=== PATIENT | male | born 1960 | race Caucasian/White ===

== ENCOUNTER 2020-07-30 14:52 | Inpatient (IN) | payer MEDICARE, OTHER ==
[~2020-07-30] VITALS: Ht 182.9 cm; Wt 111.8 kg
[2020-07-30] MEDS ORDERED: VIT1CAPS PO (15:27)
[2020-07-30] MEDS ORDERED: BENA20TA9 PO (15:27)
[2020-07-30] MEDS ORDERED: GABA-532 PO (15:27)
[2020-07-30] MEDS ORDERED: INSULIN GLARGINE SUBCUT (15:27)
[2020-07-30] MEDS ORDERED: MULT-594 PO (15:27)
[2020-07-30] MEDS ORDERED: ATOR20TA PO (15:27)
[2020-07-30] MEDS ORDERED: INSU100V39 SQ (15:27)
[2020-07-30] MEDS ORDERED: ACET-2154 PO (15:27)
[2020-07-30] MEDS ORDERED: GLUC1KIT IM (15:27)
[2020-07-30] MEDS ORDERED: IV NORMAL SALINE 1000 ML BAG IV ONE (15:30)
[2020-07-30 15:39] LABS: *BILIRUBIN,URIN NEGATIVE (NEGATIVE); *BLOOD, URINE NEGATIVE (NEGATIVE); *CLARITY,URINE CLEAR (CLEAR); *COLOR,URINE LIGHT YELLOW (YELLOW); *KETONES,URINE NEGATIVE (NEGATIVE); *UROBILINOGEN,URINE 0.2 E.U./dl (NORMAL); LEUKOCYTE ESTERASE ,URINE NEGATIVE (NEGATIVE); NITRITE, URINE NEGATIVE (NEGATIVE)
[2020-07-30 15:41] LABS: UGLUCOSE 2+ (NEGATIVE)
[2020-07-30 16:14] LABS: BASOPHILS # (AUTO) 0.1 K/uL (0.0-8.0); BASOPHILS % (AUTO) 0.6 % (0.0-2.0); EOSINOPHILS # (AUTO) 0.1 K/uL (0.0-0.7); EOSINOPHILS % (AUTO) 1.4 % (0.0-7.0); HEMATOCRIT 47.9 % (36.7-47.1); HEMOGLOBIN 16.5 g/dL (12.5-16.3); LYMPHOCYTES # (AUTO) 1.1 K/uL (20.0-40.0); LYMPHOCYTES % (AUTO) 11.6 % (20.5-51.5); MEAN CORPUSCULAR HGB CONC 35 g/dL (32.5-36.3); MEAN CORPUSCULAR VOLUME 92.7 fL (73.0-96.2); MONOCYTES # (AUTO) 0.9 K/uL (2.0-10.0); MONOCYTES % (AUTO) 9.1 % (0.0-11.0); NEUTROPHILS # (AUTO) 7.4 K/uL (1.8-8.9); NEUTROPHILS % (AUTO) 77.3 % (38.5-71.5); PLATELET COUNT (AUTO) 215 K/uL (152-348); RED BLOOD CELL COUNT(AUTO) 5.16 MIL/uL (4.06-5.63); WHITE BLOOD COUNT (AUTO) 9.6 K/uL (3.6-10.2)
[2020-07-30 16:20] LABS: ABG BASE EXCESS 1.4 mmol/L; ABG HCO3 25.2 mmol/L; ABG PCO2 37.5 mmHg (35.0-45.0); ABG PH 7.446 (7.350-7.450); ABG PO2 72.4 mmHg (75.0-100.0); ABG SITE RIGHT RADIAL; ABG TOTAL HEMOGLOBIN 16.2 G/dL (13.5-18.0); MetHb 0.2 % (0.0-1.5); VENT MODE ROOM AIR
[2020-07-30 16:21] LABS: BILIRUBIN,DIRECT 0.2 mg/dL (0.0-0.2); BILIRUBIN,TOTAL 0.4 mg/dL (0.2-1.0); POTASSIUM 4.3 mmol/L (3.5-5.1); TOTAL PROTEIN, SERUM 8.1 g/dL (6.4-8.2)
[2020-07-30] MEDS ORDERED: IV NORMAL SALINE 500 ML BAG IV ONE (16:45)
[2020-07-30] MEDS ORDERED: INSULIN REGULAR, HUMAN 300 UNIT/3 ML VIAL SQ ONE (16:45)
[2020-07-30 18:23] VITALS: BP 145/78
[2020-07-30] MEDS ORDERED: ZOLPIDEM 5 MG TABLET PO PRN (19:00)
[2020-07-30] MEDS ORDERED: MORPHINE SULFATE 2 MG/1 ML DISP.SYRIN IV PRN (19:00)
[2020-07-30] MEDS ORDERED: ACETAMINOPHEN 325 MG TABLET PO PRN ×2 (19:00)
[2020-07-30] MEDS ORDERED: DEXTROSE 50% 50 ML DISP.SYRIN IV PRN (19:00)
[2020-07-30] MEDS ORDERED: ONDANSETRON 4 MG/2 ML VIAL IV PRN (19:00)
[2020-07-30] MEDS: ATORVASTATIN 20 MG TABLET PO SCH (20:21)
[2020-07-30] MEDS: GABAPENTIN 300 MG CAPSULE PO SCH (20:21)
[2020-07-30] MEDS: ENOXAPARIN SODIUM 40 MG/0.4 ML DISP.SYRIN SQ SCH (20:22)
[2020-07-30 20:30] VITALS: BP 118/62
[2020-07-30] MEDS: BLOOD SUGAR DIAGNOSTIC 1 EACH STRIP VI SCH (20:33)
[2020-07-30] MEDS: INSULIN REGULAR, HUMAN 300 UNITS/3 ML VIAL SQ PRN (20:37)
[2020-07-30] MEDS: INSULIN GLARGINE,HUM 300 UNITS/3 ML CARTRIDGE SQ SCH (20:38)
[2020-07-30] MEDS ORDERED: DOCUSATE SODIUM 100 MG CAPSULE PO PRN (21:00)
[2020-07-31 00:09] VITALS: BP 102/58
[2020-07-31 04:24] VITALS: BP 103/93
[2020-07-31] MEDS: PANTOPRAZOLE SODIUM 40 MG TABLET.DR PO SCH (06:29)
[2020-07-31] MEDS: BLOOD SUGAR DIAGNOSTIC 1 EACH STRIP VI SCH ×4 (06:30→21:17)
[2020-07-31] MEDS: INSULIN REGULAR, HUMAN 300 UNIT/3 ML VIAL SQ PRN ×3 (07:15→15:48)
[2020-07-31 07:27] LABS: BASOPHILS # (AUTO) 0.1 K/uL (0.0-8.0); EOSINOPHILS # (AUTO) 0.2 K/uL (0.0-0.7); EOSINOPHILS % (AUTO) 2.5 % (0.0-7.0); HEMATOCRIT 43.1 % (36.7-47.1); HEMOGLOBIN 14.9 g/dL (12.5-16.3); LYMPHOCYTES # (AUTO) 1.6 K/uL (20.0-40.0); LYMPHOCYTES % (AUTO) 20.7 % (20.5-51.5); MEAN CORPUSCULAR HEMOGLOBIN 31.7 uug (23.8-33.4); MEAN CORPUSCULAR HGB CONC 35 g/dL (32.5-36.3); MEAN CORPUSCULAR VOLUME 91.9 fL (73.0-96.2); MONOCYTES # (AUTO) 0.8 K/uL (2.0-10.0); MONOCYTES % (AUTO) 10.6 % (0.0-11.0); NEUTROPHILS # (AUTO) 4.9 K/uL (1.8-8.9); NEUTROPHILS % (AUTO) 65.2 % (38.5-71.5); PLATELET COUNT (AUTO) 210 K/uL (152-348); RED BLOOD CELL COUNT(AUTO) 4.69 MIL/uL (4.06-5.63); WHITE BLOOD COUNT (AUTO) 7.5 K/uL (3.6-10.2)
[2020-07-31 07:31] LABS: THYROID STIMULATING HORMONE 1.423 mIU/mL (0.358-3.740)
[2020-07-31 07:42] LABS: BILIRUBIN,TOTAL 0.3 mg/dL (0.2-1.0); CREATININE 0.7 mg/dL (0.6-1.3); MAGNESIUM 1.9 mg/dL (1.8-2.4); PHOSPHOROUS 2.9 mg/dL (2.5-4.9); POTASSIUM 3.5 mmol/L (3.5-5.1); TOTAL PROTEIN, SERUM 6.6 g/dL (6.4-8.2)
[2020-07-31] MEDS: MULTIVITAMINS,THERAPEUTIC TABLET PO SCH (08:00)
[2020-07-31] MEDS: BENAZEPRIL HCL 5 MG TABLET PO SCH (08:00)
[2020-07-31] MEDS: FUROSEMIDE 20 MG/2 ML VIAL IV SCH (08:13)
[2020-07-31] MEDS ORDERED: ALPHA LIPOIC ACID PO SCH (09:00)
[2020-07-31] MEDS ORDERED: FOLIC ACID PO SCH (09:00)
[2020-07-31] MEDS ORDERED: CYANOCOBALAMIN PO SCH (09:00)
[2020-07-31] MEDS ORDERED: THIAMINE PO SCH (09:00)
[2020-07-31] MEDS ORDERED: VITAMIN E PO SCH (09:00)
[2020-07-31] MEDS ORDERED: PYRIDOXINE PO SCH (09:00)
[2020-07-31] MEDS ORDERED: COENZYME Q10 PO SCH (09:00)
[2020-07-31] MEDS: REPAGLINIDE 1 MG TABLET PO SCH ×2 (11:27→16:12)
[2020-07-31] MEDS ORDERED: INSULIN REGULAR, HUMAN 300 UNIT/3 ML VIAL SQ ONE (11:30)
[2020-07-31 11:39] VITALS: BP 120/62
[2020-07-31 15:31] VITALS: BP 102/55
[2020-07-31 20:24] VITALS: BP 116/59
[2020-07-31] MEDS: ATORVASTATIN 20 MG TABLET PO SCH (20:53)
[2020-07-31] MEDS: ENOXAPARIN SODIUM 40 MG/0.4 ML DISP.SYRIN SQ SCH (20:54)
[2020-07-31] MEDS: GABAPENTIN 300 MG CAPSULE PO SCH (20:54)
[2020-07-31] MEDS: INSULIN REGULAR, HUMAN 300 UNITS/3 ML VIAL SQ PRN (21:19)
[2020-07-31] MEDS: INSULIN GLARGINE,HUM 300 UNITS/3 ML CARTRIDGE SQ SCH (21:20)
[2020-08-01 04:18] VITALS: BP 106/63
[2020-08-01] MEDS: PANTOPRAZOLE SODIUM 40 MG TABLET.DR PO SCH (06:38)
[2020-08-01] MEDS: BLOOD SUGAR DIAGNOSTIC 1 EACH STRIP VI SCH ×4 (06:38→20:47)
[2020-08-01] MEDS: INSULIN REGULAR, HUMAN 300 UNIT/3 ML VIAL SQ PRN ×3 (07:47→16:43)
[2020-08-01] MEDS: REPAGLINIDE 1 MG TABLET PO SCH ×3 (07:48→16:33)
[2020-08-01] MEDS: FUROSEMIDE 20 MG/2 ML VIAL IV SCH (08:44)
[2020-08-01] MEDS: MULTIVITAMINS,THERAPEUTIC TABLET PO SCH (08:44)
[2020-08-01] MEDS: BENAZEPRIL HCL 5 MG TABLET PO SCH (08:47)
[2020-08-01 12:00] VITALS: BP_SYST 119; BP_DIAS 62; BP_DIAS 65
[2020-08-01 16:11] VITALS: BP 124/76
[2020-08-01 20:24] VITALS: BP 136/74
[2020-08-01] MEDS: ATORVASTATIN 20 MG TABLET PO SCH (20:45)
[2020-08-01] MEDS: GABAPENTIN 300 MG CAPSULE PO SCH (20:45)
[2020-08-01] MEDS: ENOXAPARIN SODIUM 40 MG/0.4 ML DISP.SYRIN SQ SCH (20:47)
[2020-08-01] MEDS: INSULIN REGULAR, HUMAN 300 UNITS/3 ML VIAL SQ PRN (20:48)
[2020-08-01] MEDS ORDERED: INSULIN GLARGINE,HUM 300 UNITS/3 ML CARTRIDGE SQ SCH (21:00)
[2020-08-02 05:32] VITALS: BP 166/41
[2020-08-02] MEDS: PANTOPRAZOLE SODIUM 40 MG TABLET.DR PO SCH (06:02)
[2020-08-02] MEDS: BLOOD SUGAR DIAGNOSTIC 1 EACH STRIP VI SCH ×4 (06:47→20:59)
[2020-08-02 07:44] LABS: BASOPHILS # (AUTO) 0.1 K/uL (0.0-8.0); BASOPHILS % (AUTO) 0.8 % (0.0-2.0); EOSINOPHILS # (AUTO) 0.3 K/uL (0.0-0.7); EOSINOPHILS % (AUTO) 3.1 % (0.0-7.0); HEMATOCRIT 45.9 % (36.7-47.1); HEMOGLOBIN 16.1 g/dL (12.5-16.3); LYMPHOCYTES # (AUTO) 2.2 K/uL (20.0-40.0); LYMPHOCYTES % (AUTO) 25.8 % (20.5-51.5); MEAN CORPUSCULAR HEMOGLOBIN 32.2 uug (23.8-33.4); MEAN CORPUSCULAR HGB CONC 35 g/dL (32.5-36.3); MEAN CORPUSCULAR VOLUME 92.1 fL (73.0-96.2); MONOCYTES # (AUTO) 0.8 K/uL (2.0-10.0); NEUTROPHILS # (AUTO) 5.1 K/uL (1.8-8.9); NEUTROPHILS % (AUTO) 60.3 % (38.5-71.5); PLATELET COUNT (AUTO) 230 K/uL (152-348); RED BLOOD CELL COUNT(AUTO) 4.99 MIL/uL (4.06-5.63); WHITE BLOOD COUNT (AUTO) 8.5 K/uL (3.6-10.2)
[2020-08-02] MEDS: INSULIN REGULAR, HUMAN 300 UNIT/3 ML VIAL SQ PRN ×3 (07:44→16:43)
[2020-08-02] MEDS: REPAGLINIDE 1 MG TABLET PO SCH ×3 (07:46→17:13)
[2020-08-02 07:47] LABS: POTASSIUM 3.7 mmol/L (3.5-5.1)
[2020-08-02 08:00] VITALS: BP 117/68
[2020-08-02] MEDS: MULTIVITAMINS,THERAPEUTIC TABLET PO SCH (08:22)
[2020-08-02] MEDS: FUROSEMIDE 20 MG/2 ML VIAL IV SCH (08:32)
[2020-08-02 09:22] VITALS: BP 108/60
[2020-08-02] MEDS ORDERED: POTASSIUM CHLORIDE 20 MEQ TAB.PRT.SR PO ONE (11:00)
[2020-08-02] MEDS ORDERED: PANT40TA2 PO (12:26)
[2020-08-02] MEDS ORDERED: REPA1TAB PO (12:26)
[2020-08-02] MEDS ORDERED: Insulin Glargine,Hum SQ (12:26)
[2020-08-02] MEDS ORDERED: FURO-152 PO (12:26)
[2020-08-02] MEDS ORDERED: ATOR10TA PO (12:26)
[2020-08-02] MEDS ORDERED: ZOLP5TAB8 PO (12:26)
[2020-08-02 13:46] VITALS: BP 112/59
[2020-08-02] MEDS: BENAZEPRIL HCL 5 MG TABLET PO SCH (14:27)
[2020-08-02 16:01] VITALS: BP 105/60
[2020-08-02 20:05] VITALS: BP 120/62
[2020-08-02] MEDS: SULFAMETH/TRIMETH 800/160 MG TABLET PO SCH (20:58)
[2020-08-02] MEDS: ATORVASTATIN 20 MG TABLET PO SCH (20:58)
[2020-08-02] MEDS: GABAPENTIN 300 MG CAPSULE PO SCH (20:58)
[2020-08-02] MEDS ORDERED: INSULIN GLARGINE,HUM 300 UNITS/3 ML CARTRIDGE SQ SCH (21:00)
[2020-08-02] MEDS: INSULIN REGULAR, HUMAN 300 UNITS/3 ML VIAL SQ PRN (21:02)
[2020-08-02] MEDS: ENOXAPARIN SODIUM 40 MG/0.4 ML DISP.SYRIN SQ SCH (21:05)
[2020-08-03 04:59] VITALS: BP 112/71
[2020-08-03] MEDS: PANTOPRAZOLE SODIUM 40 MG TABLET.DR PO SCH (06:35)
[2020-08-03] MEDS: BLOOD SUGAR DIAGNOSTIC 1 EACH STRIP VI SCH ×3 (06:47→16:05)
[2020-08-03] MEDS: INSULIN REGULAR, HUMAN 300 UNIT/3 ML VIAL SQ PRN ×3 (07:45→17:07)
[2020-08-03] MEDS: SULFAMETH/TRIMETH 800/160 MG TABLET PO SCH (08:03)
[2020-08-03] MEDS: MULTIVITAMINS,THERAPEUTIC TABLET PO SCH (08:03)
[2020-08-03] MEDS: BENAZEPRIL HCL 5 MG TABLET PO SCH (08:03)
[2020-08-03] MEDS: REPAGLINIDE 1 MG TABLET PO SCH ×3 (08:03→16:39)
[2020-08-03] MEDS: FUROSEMIDE 20 MG/2 ML VIAL IV SCH (08:31)
[2020-08-03] MEDS ORDERED: ASPIRIN EC 81 MG TABLET.DR PO SCH (09:00)
[2020-08-03 11:20] VITALS: BP 113/64
[2020-08-03] MEDS ORDERED: INSU100V7 SQ (11:51)
[2020-08-03] MEDS ORDERED: Sulfameth/Trimeth 800/160 Mg PO (11:53)
[2020-08-03] MEDS ORDERED: ASCO500P18 PO (11:58)
[2020-08-03] MEDS ORDERED: ZINC1CAP2 PO (11:58)
[2020-08-03 16:06] VITALS: BP 97/56
== END 2020-08-03 17:33 | DRG 264 ==
LOC: ER 14:52 → TELE3 17:39 → MEDSURG3 07-31 17:37
PROVIDERS: ADMIT Internal Medicine; ATTEND Internal Medicine
PROC: 0JBR0ZZ Excision of Left Foot Subcutaneous Tissue and Fascia, Open Approach (ICD-10-PCS; principal; 2020-07-31)
PROC: 0JBQ0ZZ Excision of Right Foot Subcutaneous Tissue and Fascia, Open Approach (ICD-10-PCS; 2020-07-31)
DX: I11.0 Hypertensive heart disease with heart failure (principal); I50.31 Acute diastolic (congestive) heart failure; E43 Unspecified severe protein-calorie malnutrition; J96.00 Acute respiratory failure, unspecified whether with hypoxia or hypercapnia; D68.69 Other thrombophilia; E11.65 Type 2 diabetes mellitus with hyperglycemia; Z79.4 Long term (current) use of insulin; E11.40 Type 2 diabetes mellitus with diabetic neuropathy, unspecified; E11.51 Type 2 diabetes mellitus with diabetic peripheral angiopathy without gangrene; D64.9 Anemia, unspecified; E11.42 Type 2 diabetes mellitus with diabetic polyneuropathy; E78.5 Hyperlipidemia, unspecified; F17.210 Nicotine dependence, cigarettes, uncomplicated; Z91.19 Patient's noncompliance with other medical treatment and regimen; L84 Corns and callosities; F20.9 Schizophrenia, unspecified; E66.9 Obesity, unspecified; Z68.33 Body mass index [BMI] 33.0-33.9, adult; J44.9 Chronic obstructive pulmonary disease, unspecified; L03.031 Cellulitis of right toe; E11.621 Type 2 diabetes mellitus with foot ulcer; L97.519 Non-pressure chronic ulcer of other part of right foot with unspecified severity; L97.529 Non-pressure chronic ulcer of other part of left foot with unspecified severity; Z89.412 Acquired absence of left great toe; Z89.411 Acquired absence of right great toe; G47.33 Obstructive sleep apnea (adult) (pediatric)
CPT/HCPCS: 36415; 36600; 70030-TC; 71045; 83690; 83735; 84100; 84443; 85025; 93307; A4663; G0378; J1650; J1815; J1940; J7030